=== PATIENT | female | born 1965 | race African-American/Black ===

== ENCOUNTER 2019-09-03 12:32 | Inpatient (IN) ==
[2019-09-03] MEDS ORDERED: FUROSEMIDE 100 MG/10 ML VIAL IV STA (12:42)
[2019-09-03] MEDS ORDERED: DEXTROSE 50% 25 GM/50 ML VIAL IV STA (12:46)
[2019-09-03] MEDS ORDERED: DEXTROSE 50% 25 GM/50 ML SYRINGE IV ONE (12:46)
[2019-09-03 13:05] LABS: Basophils % 0.4 % (0.0-0.8); Eosinophils # 0.1 10*3/uL (0.0-0.87); Hematocrit 26.5 VOL% (35.7-47.0); Immature Granulocytes % 0.7 %; Immature Granulocytes Absolute 0.05 #; Lymphocytes # 1.1 10*3/uL (1.4-4.0); Lymphocytes % 15.2 % (21.3-54.2); Mean Corpuscular HGB Conc 30.2 GM/DL (32-36); Mean Corpuscular Volume 97.1 FL (87-102); Mean Platelet Volume 9.9 FL (9.6-12.0); Monocytes % 8.4 % (1.7-12.7); Neutrophils % 74.3 % (38.7-73.9); Platelet Count 209 T/CUMM (130-400); Red Blood Count 2.73 MC/CUMM (3.8-5.5); Red Cell Distribution Width 14.7 % (9.3-17.3); White Blood Count 7.2 T/CUMM (4-12)
[2019-09-03 13:34] LABS: Alanine Aminotransferase 24 U/L (13-56); Albumin 2.2 G/DL (3.4-5.0); Alkaline Phosphatase 165 U/L (45-117); Aspartate Amino Transferase 14 U/L (0-37); Bilirubin,Total < 0.39 MG/DL (0.2-1.0); Blood Urea Nitrogen 67 MG/DL (7-18); Calcium 6.7 MG/DL (8.5-10.1); Estimated Glom Filtration Rate 11 ML/MIN; Osmolality,Calculated 306.4 MOS/KG (273-304); Total Protein 5.4 G/DL (6.4-8.3)
[2019-09-03 13:38] LABS: Apearance,Urine Slightly Hazy (Clear); Bacteria,Urine Many /HPF (Few); Bilirubin,Urine Negative (Negative); Blood, Urine Negative (Negative); Glucose,Urine (UA) Negative (Negative); Ketones,Urine Negative (Negative); Nitrite,Urine Negative (Negative); Protein,Urine >=500 MG/DL; RBC,Urine 9 /HPF (0-4); Squamous Epithelial Cell,Urine Occasional /HPF (0-10); Urine Color Yellow (Yellow); Urine Specific Gravity 1.015 (1.001-1.035); Urine Urobilinogen < 2.0 EU/DL (0.2-1.0); WBC,Urine 96 /HPF (0-6)
[2019-09-03 13:40] LABS: Glucose 29 MG/DL (74-106)
[2019-09-03] MEDS ORDERED: ONDANSETRON 4 MG/2 ML VIAL IV PRN (15:34)
[2019-09-03] MEDS ORDERED: ACETAMINOPHEN 325 MG TABLET PO PRN (15:34)
[2019-09-03] MEDS ORDERED: GLUCAGON 1 MG VIAL IM PRN (15:34)
[2019-09-03] MEDS ORDERED: ALBUTEROL/IPRATROPIUM 3 ML NEB RESP TX PRN (15:34)
[2019-09-03] MEDS ORDERED: DEXTROSE 50% 25 GM/50 ML VIAL IV PRN (15:34)
[2019-09-03] MEDS ORDERED: cefTRIAXone 1,000 MG in SYRINGE 1 EACH IV SCH (16:00)
[2019-09-03 16:35] LABS: Risk Ratio 1.7; Thyroid Stimulating Hormone 0.824 uIU/ml (0.358-3.74); VLDL CHOLESTEROL 18.2 MG/DL
[2019-09-03] MEDS ORDERED: DEXTROSE 10% 250 ML IV ONE (17:23)
[2019-09-03] MEDS: DEXTROSE 10% 1,000 ML IV SCH (17:45)
[2019-09-03] MEDS ORDERED: MIDAZOLAM 2 MG/2 ML VIAL ONE (18:41)
[2019-09-03] MEDS ORDERED: SUCCINYLCHOLINE 200 MG/10 ML VIAL ONE (18:41)
[2019-09-03] MEDS ORDERED: MIDAZOLAM 2 MG/2 ML VIAL IV ONE (18:44)
[2019-09-03] MEDS ORDERED: SUCCINYLCHOLINE 200 MG/10 ML VIAL IV ONE (18:45)
[2019-09-03] MEDS ORDERED: LABETALOL 20 MG/4 ML SYRINGE IV ONE (18:52)
[2019-09-03] MEDS ORDERED: niCARdipine INJ 25 MG in SODIUM CHLORIDE 0.9% 240 ML IV PRN (18:52)
[2019-09-03 19:52] LABS: ABG Base Excess -6.6 MMOL/L (-2.5-2.5); ABG HCO3 21.1 MMOL/L (20-26); ABG Oxygen Saturation 99.2 % (95-100); ABG PCO2 54.2 MM HG (35-48); ABG PO2 528.4 MM HG (80-95); ABG TCO2 22.8 MMOL/L (23-27); Pt O2 Delivery Device Ventilator
[2019-09-03 19:54] LABS: ABG PH 7.208 (7.35-7.45)
[2019-09-03] MEDS ORDERED: SODIUM BICARBONATE 50 MEQ/50 ML VIAL IV ONE (20:10)
[2019-09-03] MEDS: CLINDAMYCIN INJ 600 MG in PREMIX 1 EACH IV SCH (20:53)
[2019-09-03] MEDS: SIMVASTATIN 40 MG TABLET PO SCH (20:55)
[2019-09-03] MEDS: ENOXAPARIN 30 MG/0.3 ML SYRINGE SUBCUT SCH (21:05)
[2019-09-03] MEDS: PIPERACILLIN/TAZOBACTAM 3,375 MG in SODIUM CHLORIDE 0.9% 100 ML IV SCH (21:10)
[2019-09-03 22:35] LABS: Pt O2 Delivery Device Ventilator
[2019-09-03 22:36] LABS: ABG Base Excess -2.3 MMOL/L (-2.5-2.5); ABG HCO3 20.6 MMOL/L (20-26); ABG Oxygen Saturation 97.2 % (95-100); ABG PCO2 27.6 MM HG (35-48); ABG PH 7.491 (7.35-7.45); ABG PO2 97.6 MM HG (80-95); ABG TCO2 21.5 MMOL/L (23-27)
[2019-09-04 01:27] LABS: Basophils % 0.4 % (0.0-0.8); Eosinophils % 0.5 % (0.00-10.9); Hematocrit 22.4 VOL% (35.7-47.0); Immature Granulocytes % 0.5 %; Immature Granulocytes Absolute 0.03 #; Lymphocytes # 0.6 10*3/uL (1.4-4.0); Lymphocytes % 11.3 % (21.3-54.2); Mean Corpuscular HGB Conc 31.3 GM/DL (32-36); Mean Corpuscular Volume 92.6 FL (87-102); Mean Platelet Volume 9.4 FL (9.6-12.0); Monocytes % 4.1 % (1.7-12.7); Neutrophils % 83.2 % (38.7-73.9); Platelet Count 171 T/CUMM (130-400); Red Blood Count 2.42 MC/CUMM (3.8-5.5); Red Cell Distribution Width 14.6 % (9.3-17.3); White Blood Count 5.6 T/CUMM (4-12)
[2019-09-04 01:42] LABS: Calcium 6.6 MG/DL (8.5-10.1); Osmolality,Calculated 308.8 MOS/KG (273-304)
[2019-09-04] MEDS: CLINDAMYCIN INJ 600 MG in PREMIX 1 EACH IV SCH ×2 (04:40→12:00)
[2019-09-04 04:47] LABS: ABG HCO3 22.8 MMOL/L (20-26); ABG PCO2 27.5 MM HG (35-48); ABG PH 7.487 (7.35-7.45); ABG TCO2 19.6 MMOL/L (23-27); Pt O2 Delivery Device Ventilator
[2019-09-04] MEDS ORDERED: FUROSEMIDE 40 MG/4 ML VIAL IV SCH (09:00)
[2019-09-04] MEDS ORDERED: PANTOPRAZOLE 40 MG TABLET PO SCH (09:00)
[2019-09-04] MEDS: PIPERACILLIN/TAZOBACTAM 3,375 MG in SODIUM CHLORIDE 0.9% 100 ML IV SCH (09:05)
[2019-09-04] MEDS: PANTOPRAZOLE 40 MG VIAL IV SCH (09:05)
[2019-09-04] MEDS: CHLORTHALIDONE 25 MG TABLET PO SCH (09:05)
[2019-09-04] MEDS: DEXTROSE 10% 1,000 ML IV SCH (09:15)
[2019-09-04] MEDS: cefTRIAXone 1,000 MG in SYRINGE 1 EACH IV SCH (13:00)
[2019-09-04] MEDS: AZITHROMYCIN INJ 500 MG in SODIUM CHLORIDE 0.9% 250 ML IV SCH (13:05)
[2019-09-04] MEDS: SODIUM BICARB INJ 50 MEQ in DEXTROSE 5% 1,000 ML IV SCH (14:50)
[2019-09-04] MEDS: ENOXAPARIN 30 MG/0.3 ML SYRINGE SUBCUT SCH (16:05)
[2019-09-04] MEDS: INSULIN REGULAR 100 UNIT/ML SUBCUT SCH (18:20)
[2019-09-04] MEDS: fentaNYL INJ 1,250 MCG in SODIUM CHLORIDE 0.9% 225 ML IV PRN (18:25)
[2019-09-04] MEDS: SIMVASTATIN 40 MG TABLET PO SCH (20:23)
[2019-09-05] MEDS: INSULIN REGULAR 100 UNIT/ML SUBCUT SCH ×5 (00:02→23:30)
[2019-09-05] MEDS: fentaNYL INJ 1,250 MCG in SODIUM CHLORIDE 0.9% 225 ML IV PRN ×4 (00:25→23:04)
[2019-09-05] MEDS: SODIUM BICARB INJ 50 MEQ in DEXTROSE 5% 1,000 ML IV SCH ×3 (01:05→10:00)
[2019-09-05 03:41] LABS: ABG Base Excess -2.5 MMOL/L (-2.5-2.5); ABG HCO3 22.3 MMOL/L (20-26); ABG Oxygen Saturation 99.5 % (95-100); ABG PCO2 34.2 MM HG (35-48); ABG TCO2 20.5 MMOL/L (23-27); Allen Test Positive; Pt O2 Delivery Device Ventilator
[2019-09-05 05:08] LABS: Basophils % 0.2 % (0.0-0.8); Eosinophils % 0.3 % (0.00-10.9); Hematocrit 22.7 VOL% (35.7-47.0); Hemoglobin 6.9 GM/DL (12.0-16.0); Immature Granulocytes % 0.9 %; Immature Granulocytes Absolute 0.05 #; Lymphocytes # 0.8 10*3/uL (1.4-4.0); Lymphocytes % 12.9 % (21.3-54.2); Mean Corpuscular HGB Conc 30.4 GM/DL (32-36); Mean Corpuscular Volume 94.2 FL (87-102); Mean Platelet Volume 9.8 FL (9.6-12.0); Monocytes % 6.2 % (1.7-12.7); NRBC # 0.02 10*3/uL; Neutrophils % 79.5 % (38.7-73.9); Platelet Count 196 T/CUMM (130-400); Red Blood Count 2.41 MC/CUMM (3.8-5.5); Red Cell Distribution Width 14.8 % (9.3-17.3); White Blood Count 5.8 T/CUMM (4-12)
[2019-09-05 05:41] LABS: Osmolality,Calculated 306.1 MOS/KG (273-304)
[2019-09-05 05:43] LABS: Prealbumin 15.3 MG/DL (20-40)
[2019-09-05] MEDS ORDERED: MAGNESIUM SULF RIDER 4 GM in PREMIX 1 EACH IV PRN (06:03)
[2019-09-05 06:07] LABS: Calcium 5.8 MG/DL (8.5-10.1)
[2019-09-05] MEDS: MAGNESIUM SULF RIDER 2 GM in PREMIX 1 EACH IV PRN (06:29)
[2019-09-05] MEDS ORDERED: CALCIUM GLUCONATE 2,000 MG in SODIUM CHLORIDE 0.9% 100 ML IV ONE (07:00)
[2019-09-05] MEDS: PANTOPRAZOLE 40 MG VIAL IV SCH (08:25)
[2019-09-05] MEDS: CHLORTHALIDONE 25 MG TABLET PO SCH (08:25)
[2019-09-05] MEDS ORDERED: FUROSEMIDE 40 MG/4 ML VIAL IV SCH (09:00)
[2019-09-05] MEDS: cefTRIAXone 1,000 MG in SYRINGE 1 EACH IV SCH (11:45)
[2019-09-05] MEDS: AZITHROMYCIN INJ 500 MG in SODIUM CHLORIDE 0.9% 250 ML IV SCH (13:00)
[2019-09-05] MEDS: ENOXAPARIN 30 MG/0.3 ML SYRINGE SUBCUT SCH (16:25)
[2019-09-05] MEDS ORDERED: METOPROLOL TARTRATE 5 MG/5 ML VIAL IV ONE ×2 (17:08→17:10)
[2019-09-05] MEDS ORDERED: FUROSEMIDE 20 MG/2 ML VIAL IV ONE (18:06)
[2019-09-05] MEDS: SIMVASTATIN 40 MG TABLET PO SCH (20:04)
[2019-09-06 03:22] LABS: ABG Base Excess -4.3 MMOL/L (-2.5-2.5); ABG HCO3 20.8 MMOL/L (20-26); ABG Oxygen Saturation 95.4 % (95-100); ABG PH 7.311 (7.35-7.45); ABG PO2 80.6 MM HG (80-95); ABG TCO2 20.4 MMOL/L (23-27); Allen Test Positive; Pt O2 Delivery Device Ventilator
[2019-09-06 03:33] LABS: Basophils % 0.3 % (0.0-0.8); Eosinophils # 0.2 10*3/uL (0.0-0.87); Eosinophils % 1.7 % (0.00-10.9); Hematocrit 25.7 VOL% (35.7-47.0); Hemoglobin 7.6 GM/DL (12.0-16.0); Immature Granulocytes % 2.6 %; Immature Granulocytes Absolute 0.22 #; Lymphocytes # 1.2 10*3/uL (1.4-4.0); Lymphocytes % 13.4 % (21.3-54.2); Mean Corpuscular HGB Conc 29.6 GM/DL (32-36); Mean Corpuscular Volume 96.6 FL (87-102); Mean Platelet Volume 10.1 FL (9.6-12.0); NRBC # 0.02 10*3/uL; Platelet Count 237 T/CUMM (130-400); Red Blood Count 2.66 MC/CUMM (3.8-5.5); White Blood Count 8.6 T/CUMM (4-12)
[2019-09-06 03:51] LABS: Osmolality,Calculated 302.3 MOS/KG (273-304)
[2019-09-06] MEDS: CALCIUM GLUCONATE 2,000 MG in SODIUM CHLORIDE 0.9% 100 ML IV PRN (05:05)
[2019-09-06] MEDS: INSULIN REGULAR 100 UNIT/ML SUBCUT SCH ×3 (05:47→18:35)
[2019-09-06] MEDS ORDERED: niCARdipine INJ 25 MG in SODIUM CHLORIDE 0.9% 240 ML IV STA (07:43)
[2019-09-06] MEDS: fentaNYL INJ 1,250 MCG in SODIUM CHLORIDE 0.9% 225 ML IV PRN ×3 (08:19→22:00)
[2019-09-06] MEDS: CHLORTHALIDONE 25 MG TABLET PO SCH (08:20)
[2019-09-06] MEDS ORDERED: niCARdipine INJ 25 MG in SODIUM CHLORIDE 0.9% 240 ML IV PRN (08:20)
[2019-09-06] MEDS: PANTOPRAZOLE 40 MG VIAL IV SCH (08:21)
[2019-09-06] MEDS: MAGNESIUM SULF RIDER 2 GM in PREMIX 1 EACH IV PRN (09:50)
[2019-09-06] MEDS: cefTRIAXone 1,000 MG in SYRINGE 1 EACH IV SCH (13:33)
[2019-09-06] MEDS: AZITHROMYCIN INJ 500 MG in SODIUM CHLORIDE 0.9% 250 ML IV SCH (13:37)
[2019-09-06] MEDS: FUROSEMIDE 40 MG/4 ML VIAL IV SCH (17:05)
[2019-09-06] MEDS: ENOXAPARIN 30 MG/0.3 ML SYRINGE SUBCUT SCH (17:05)
[2019-09-06] MEDS ORDERED: FUROSEMIDE 40 MG/4 ML VIAL IM ONE (21:00)
[2019-09-06] MEDS: carvediloL 25 MG TABLET PO SCH (21:05)
[2019-09-06] MEDS: cloNIDine 0.1 MG TABLET PO SCH (21:05)
[2019-09-06] MEDS: SIMVASTATIN 40 MG TABLET PO SCH (22:10)
[2019-09-06] MEDS: VERAPAMIL 120 MG TABLET PO SCH (22:10)
[2019-09-06] MEDS ORDERED: FUROSEMIDE 40 MG/4 ML VIAL IV ONE (22:30)
[2019-09-07] MEDS: INSULIN REGULAR 100 UNIT/ML SUBCUT SCH ×5 (00:49→23:10)
[2019-09-07 03:46] LABS: ABG Base Excess -3.9 MMOL/L (-2.5-2.5); ABG HCO3 21.1 MMOL/L (20-26); ABG Oxygen Saturation 98.4 % (95-100); ABG PCO2 33.8 MM HG (35-48); ABG TCO2 19.3 MMOL/L (23-27); Allen Test Positive; Pt O2 Delivery Device Ventilator
[2019-09-07 04:40] LABS: Basophils % 0.4 % (0.0-0.8); Eosinophils # 0.2 10*3/uL (0.0-0.87); Hematocrit 23.6 VOL% (35.7-47.0); Hemoglobin 7.1 GM/DL (12.0-16.0); Immature Granulocytes % 3.7 %; Immature Granulocytes Absolute 0.33 #; Lymphocytes # 1.5 10*3/uL (1.4-4.0); Lymphocytes % 16.5 % (21.3-54.2); Mean Corpuscular HGB Conc 30.1 GM/DL (32-36); Mean Corpuscular Volume 94.4 FL (87-102); Mean Platelet Volume 9.7 FL (9.6-12.0); Monocytes % 8.4 % (1.7-12.7); Platelet Count 209 T/CUMM (130-400); Red Cell Distribution Width 15.1 % (9.3-17.3); White Blood Count 8.9 T/CUMM (4-12)
[2019-09-07] MEDS: fentaNYL INJ 1,250 MCG in SODIUM CHLORIDE 0.9% 225 ML IV PRN (04:46)
[2019-09-07 05:11] LABS: Calcium 6.1 MG/DL (8.5-10.1); Osmolality,Calculated 302.3 MOS/KG (273-304)
[2019-09-07] MEDS: CALCIUM GLUCONATE 2,000 MG in SODIUM CHLORIDE 0.9% 100 ML IV PRN (05:58)
[2019-09-07] MEDS: FUROSEMIDE 40 MG/4 ML VIAL IV SCH ×2 (08:08→16:03)
[2019-09-07] MEDS: PANTOPRAZOLE 40 MG VIAL IV SCH (09:00)
[2019-09-07] MEDS: POTASSIUM CHLORIDE 20 MEQ/15 ML UDCUP PER TUBE PRN ×5 (09:00→23:10)
[2019-09-07] MEDS ORDERED: metOLazone 5 MG TABLET PO SCH (09:00)
[2019-09-07] MEDS: VERAPAMIL 120 MG TABLET PO SCH ×2 (09:01→20:17)
[2019-09-07] MEDS: carvediloL 25 MG TABLET PO SCH ×2 (09:01→20:17)
[2019-09-07] MEDS: SEVELAMER CARBONATE 800 MG TABLET PO SCH ×3 (09:01→17:20)
[2019-09-07] MEDS: POTASSIUM CHLORIDE 10 MEQ TABLET PO SCH (09:01)
[2019-09-07] MEDS: cloNIDine 0.1 MG TABLET PO SCH ×3 (09:05→20:17)
[2019-09-07] MEDS: cefTRIAXone 1,000 MG in SYRINGE 1 EACH IV SCH (12:43)
[2019-09-07] MEDS ORDERED: NITROGLYCERIN 2% OINT 1 INCH/GM PACK TOP SCH (13:16)
[2019-09-07] MEDS: AZITHROMYCIN INJ 500 MG in SODIUM CHLORIDE 0.9% 250 ML IV SCH (13:59)
[2019-09-07] MEDS: ENOXAPARIN 30 MG/0.3 ML SYRINGE SUBCUT SCH (16:03)
[2019-09-07] MEDS: SIMVASTATIN 40 MG TABLET PO SCH (20:17)
[2019-09-08] MEDS: cloNIDine 0.1 MG TABLET PO SCH ×5 (02:10→21:42)
[2019-09-08 04:13] LABS: ABG Base Excess -3.9 MMOL/L (-2.5-2.5); ABG HCO3 20.6 MMOL/L (20-26); ABG Oxygen Saturation 95.9 % (95-100); ABG PCO2 35.3 MM HG (35-48); ABG PH 7.385 (7.35-7.45); ABG PO2 85.4 MM HG (80-95); ABG TCO2 21.7 MMOL/L (23-27); Allen Test Positive; Pt O2 Delivery Device Ventilator
[2019-09-08 04:29] LABS: Basophils % 0.4 % (0.0-0.8); Eosinophils # 0.2 10*3/uL (0.0-0.87); Eosinophils % 1.8 % (0.00-10.9); Hematocrit 25.3 VOL% (35.7-47.0); Hemoglobin 7.6 GM/DL (12.0-16.0); Immature Granulocytes Absolute 0.51 #; Lymphocytes # 1.1 10*3/uL (1.4-4.0); Lymphocytes % 11.2 % (21.3-54.2); Mean Corpuscular Volume 94.8 FL (87-102); Mean Platelet Volume 9.5 FL (9.6-12.0); Monocytes % 7.5 % (1.7-12.7); NRBC # 0.02 10*3/uL; Neutrophils % 74.1 % (38.7-73.9); Platelet Count 221 T/CUMM (130-400); Red Blood Count 2.67 MC/CUMM (3.8-5.5); Red Cell Distribution Width 15.3 % (9.3-17.3); White Blood Count 10.2 T/CUMM (4-12)
[2019-09-08 04:53] LABS: Calcium 6.8 MG/DL (8.5-10.1); Osmolality,Calculated 304.3 MOS/KG (273-304)
[2019-09-08] MEDS: INSULIN REGULAR 100 UNIT/ML SUBCUT SCH ×3 (05:00→18:27)
[2019-09-08 05:15] LABS: Eosinophils 1 % (0-10); Hypochromasia 1+; Lymphocytes 15 % (20-55); Metamyelocytes 2 %; Microcytosis Slight; Myelocytes 1 %; Segmented Neutrophils 74 % (50-85); Total Cells Counted 100
[2019-09-08 05:16] LABS: Platelet Estimate Normal
[2019-09-08] MEDS: FUROSEMIDE 40 MG/4 ML VIAL IV SCH (08:40)
[2019-09-08] MEDS: PANTOPRAZOLE 40 MG VIAL IV SCH (08:40)
[2019-09-08] MEDS: CALCIUM CARBONATE CHEW 500 MG TABLET PO SCH ×3 (09:07→21:42)
[2019-09-08] MEDS: SEVELAMER CARBONATE 800 MG TABLET PO SCH ×3 (09:07→17:18)
[2019-09-08] MEDS: VERAPAMIL 120 MG TABLET PO SCH ×2 (09:08→21:42)
[2019-09-08] MEDS: POTASSIUM CHLORIDE 10 MEQ TABLET PO SCH (09:08)
[2019-09-08] MEDS: carvediloL 25 MG TABLET PO SCH ×2 (09:09→21:42)
[2019-09-08] MEDS: CALCIUM GLUCONATE 2,000 MG in SODIUM CHLORIDE 0.9% 100 ML IV PRN (09:09)
[2019-09-08] MEDS: DEXMEDETOMIDINE 200 MCG in SODIUM CHLORIDE 0.9% 48 ML IV PRN ×2 (11:26→20:02)
[2019-09-08] MEDS: cefTRIAXone 1,000 MG in SYRINGE 1 EACH IV SCH (12:47)
[2019-09-08] MEDS: AZITHROMYCIN INJ 500 MG in SODIUM CHLORIDE 0.9% 250 ML IV SCH (13:05)
[2019-09-08] MEDS: ENOXAPARIN 30 MG/0.3 ML SYRINGE SUBCUT SCH (16:00)
[2019-09-08] MEDS: SIMVASTATIN 40 MG TABLET PO SCH (21:42)
[2019-09-09] MEDS: INSULIN REGULAR 100 UNIT/ML SUBCUT SCH ×4 (01:18→17:35)
[2019-09-09] MEDS: CALCIUM CARBONATE CHEW 500 MG TABLET PO SCH ×4 (03:12→21:13)
[2019-09-09] MEDS: cloNIDine 0.1 MG TABLET PO SCH ×4 (03:12→21:15)
[2019-09-09 03:30] LABS: ABG Base Excess -2.3 MMOL/L (-2.5-2.5); ABG HCO3 22.5 MMOL/L (20-26); ABG Oxygen Saturation 98.8 % (95-100); ABG PCO2 34.1 MM HG (35-48); ABG PH 7.413 (7.35-7.45); Allen Test Positive; Pt O2 Delivery Device Ventilator
[2019-09-09] MEDS: DEXMEDETOMIDINE 200 MCG in SODIUM CHLORIDE 0.9% 48 ML IV PRN ×3 (03:38→19:29)
[2019-09-09 05:01] LABS: Basophils % 0.2 % (0.0-0.8); Eosinophils # 0.2 10*3/uL (0.0-0.87); Eosinophils % 1.7 % (0.00-10.9); Hematocrit 23.6 VOL% (35.7-47.0); Hemoglobin 7.2 GM/DL (12.0-16.0); Immature Granulocytes % 3.8 %; Immature Granulocytes Absolute 0.38 #; Lymphocytes # 0.9 10*3/uL (1.4-4.0); Lymphocytes % 9.1 % (21.3-54.2); Mean Corpuscular HGB Conc 30.5 GM/DL (32-36); Mean Platelet Volume 10.3 FL (9.6-12.0); Monocytes % 6.4 % (1.7-12.7); Neutrophils % 78.8 % (38.7-73.9); Platelet Count 222 T/CUMM (130-400); Red Blood Count 2.51 MC/CUMM (3.8-5.5); Red Cell Distribution Width 15.5 % (9.3-17.3)
[2019-09-09 05:13] LABS: Calcium 6.9 MG/DL (8.5-10.1); Osmolality,Calculated 301.5 MOS/KG (273-304)
[2019-09-09] MEDS: POTASSIUM CHLORIDE 20 MEQ/15 ML UDCUP PER TUBE PRN (06:16)
[2019-09-09] MEDS ORDERED: CALCIUM GLUCONATE 2,000 MG in SODIUM CHLORIDE 0.9% 100 ML IV PRN (06:30)
[2019-09-09] MEDS: methylPREDNISolone SOD SUC 40 MG/1 ML VIAL IV SCH ×2 (09:30→15:55)
[2019-09-09] MEDS: PANTOPRAZOLE 40 MG VIAL IV SCH (09:32)
[2019-09-09] MEDS: VERAPAMIL 120 MG TABLET PO SCH ×2 (09:40→21:14)
[2019-09-09] MEDS: carvediloL 25 MG TABLET PO SCH ×2 (09:40→21:13)
[2019-09-09] MEDS: FUROSEMIDE 40 MG/4 ML VIAL IV SCH (09:40)
[2019-09-09] MEDS: SEVELAMER CARBONATE 800 MG TABLET PO SCH ×3 (09:40→17:35)
[2019-09-09] MEDS: POTASSIUM CHLORIDE 10 MEQ TABLET PO SCH (09:40)
[2019-09-09] MEDS: AZITHROMYCIN INJ 500 MG in SODIUM CHLORIDE 0.9% 250 ML IV SCH (12:30)
[2019-09-09] MEDS: ENOXAPARIN 30 MG/0.3 ML SYRINGE SUBCUT SCH (15:55)
[2019-09-09] MEDS: cefTRIAXone 1,000 MG in SYRINGE 1 EACH IV SCH (15:55)
[2019-09-09] MEDS: SIMVASTATIN 40 MG TABLET PO SCH (21:14)
[2019-09-10] MEDS: INSULIN REGULAR 100 UNIT/ML SUBCUT SCH ×5 (01:42→21:55)
[2019-09-10] MEDS: methylPREDNISolone SOD SUC 40 MG/1 ML VIAL IV SCH ×2 (01:42→09:14)
[2019-09-10 04:05] LABS: ABG Base Excess -1.6 MMOL/L (-2.5-2.5); ABG HCO3 23.1 MMOL/L (20-26); ABG Oxygen Saturation 98.2 % (95-100); ABG PCO2 34.7 MM HG (35-48); ABG PO2 98.4 MM HG (80-95); Allen Test Positive; Pt O2 Delivery Device Ventilator
[2019-09-10] MEDS: DEXMEDETOMIDINE 200 MCG in SODIUM CHLORIDE 0.9% 48 ML IV PRN (04:10)
[2019-09-10] MEDS: CALCIUM CARBONATE CHEW 500 MG TABLET PO SCH ×4 (04:12→22:04)
[2019-09-10] MEDS: cloNIDine 0.1 MG TABLET PO SCH ×4 (04:12→22:05)
[2019-09-10 04:45] LABS: Basophils % 0.1 % (0.0-0.8); Hematocrit 25.8 VOL% (35.7-47.0); Hemoglobin 7.9 GM/DL (12.0-16.0); Immature Granulocytes % 4.2 %; Immature Granulocytes Absolute 0.46 #; Lymphocytes # 0.5 10*3/uL (1.4-4.0); Lymphocytes % 4.7 % (21.3-54.2); Mean Corpuscular HGB Conc 30.6 GM/DL (32-36); Mean Corpuscular Volume 92.1 FL (87-102); Mean Platelet Volume 10.1 FL (9.6-12.0); Monocytes % 1.5 % (1.7-12.7); Neutrophils % 89.5 % (38.7-73.9); Platelet Count 261 T/CUMM (130-400); Red Cell Distribution Width 15.3 % (9.3-17.3); White Blood Count 10.9 T/CUMM (4-12)
[2019-09-10 05:21] LABS: Band Neutrophils 1 % (0-10); Hypochromasia 1+; Lymphocytes 3 % (20-55); Metamyelocytes 1 %; Microcytosis Slight; Polychromasia Slight; Segmented Neutrophils 95 % (50-85); Total Cells Counted 100
[2019-09-10 05:22] LABS: Calcium 7.4 MG/DL (8.5-10.1); Osmolality,Calculated 304.4 MOS/KG (273-304); Platelet Estimate Normal
[2019-09-10 05:23] LABS: Prealbumin 16.4 MG/DL (20-40)
[2019-09-10] MEDS ORDERED: hydrALAZINE 20 MG/1 ML VIAL IV PRN (08:56)
[2019-09-10] MEDS: VERAPAMIL 120 MG TABLET PO SCH ×2 (09:09→22:04)
[2019-09-10] MEDS: SEVELAMER CARBONATE 800 MG TABLET PO SCH ×3 (09:09→17:50)
[2019-09-10] MEDS: carvediloL 25 MG TABLET PO SCH ×2 (09:09→22:04)
[2019-09-10] MEDS: POTASSIUM CHLORIDE 10 MEQ TABLET PO SCH (09:10)
[2019-09-10] MEDS: FUROSEMIDE 40 MG/4 ML VIAL IV SCH (09:12)
[2019-09-10] MEDS: PANTOPRAZOLE 40 MG VIAL IV SCH (09:15)
[2019-09-10] MEDS: predniSONE 20 MG TABLET PO SCH (11:10)
[2019-09-10] MEDS: cefTRIAXone 1,000 MG in SYRINGE 1 EACH IV SCH (14:15)
[2019-09-10] MEDS: ENOXAPARIN 30 MG/0.3 ML SYRINGE SUBCUT SCH (16:15)
[2019-09-10] MEDS: SIMVASTATIN 40 MG TABLET PO SCH (22:04)
[2019-09-11] MEDS: cloNIDine 0.1 MG TABLET PO SCH ×4 (03:25→20:05)
[2019-09-11] MEDS: CALCIUM CARBONATE CHEW 500 MG TABLET PO SCH ×4 (03:25→20:05)
[2019-09-11 05:45] LABS: Basophils % 0.1 % (0.0-0.8); Eosinophils % 0.1 % (0.00-10.9); Hematocrit 23.9 VOL% (35.7-47.0); Hemoglobin 7.3 GM/DL (12.0-16.0); Immature Granulocytes Absolute 0.25 #; Lymphocytes # 0.7 10*3/uL (1.4-4.0); Lymphocytes % 5.4 % (21.3-54.2); Mean Corpuscular HGB Conc 30.5 GM/DL (32-36); Mean Corpuscular Volume 94.1 FL (87-102); Mean Platelet Volume 9.9 FL (9.6-12.0); Monocytes % 7.7 % (1.7-12.7); Neutrophils % 84.7 % (38.7-73.9); Platelet Count 314 T/CUMM (130-400); Red Blood Count 2.54 MC/CUMM (3.8-5.5); Red Cell Distribution Width 15.4 % (9.3-17.3); White Blood Count 12.2 T/CUMM (4-12)
[2019-09-11 06:21] LABS: Calcium 7.5 MG/DL (8.5-10.1); Osmolality,Calculated 298.7 MOS/KG (273-304)
[2019-09-11] MEDS: predniSONE 20 MG TABLET PO SCH (08:05)
[2019-09-11] MEDS: PANTOPRAZOLE 40 MG VIAL IV SCH (08:05)
[2019-09-11] MEDS: POTASSIUM CHLORIDE 10 MEQ TABLET PO SCH (08:05)
[2019-09-11] MEDS: SEVELAMER CARBONATE 800 MG TABLET PO SCH ×3 (08:06→17:27)
[2019-09-11] MEDS: FUROSEMIDE 40 MG/4 ML VIAL IV SCH (08:06)
[2019-09-11] MEDS: carvediloL 25 MG TABLET PO SCH ×2 (08:06→20:05)
[2019-09-11] MEDS: VERAPAMIL 120 MG TABLET PO SCH ×2 (08:06→20:05)
[2019-09-11] MEDS: INSULIN REGULAR 100 UNIT/ML SUBCUT SCH ×4 (08:58→21:21)
[2019-09-11] MEDS: ENOXAPARIN 30 MG/0.3 ML SYRINGE SUBCUT SCH (17:26)
[2019-09-11] MEDS: SIMVASTATIN 40 MG TABLET PO SCH (20:05)
[2019-09-12] MEDS: CALCIUM CARBONATE CHEW 500 MG TABLET PO SCH ×4 (03:42→23:15)
[2019-09-12] MEDS: cloNIDine 0.1 MG TABLET PO SCH ×4 (03:42→23:16)
[2019-09-12 06:40] LABS: Basophils % 0.1 % (0.0-0.8); Eosinophils % 0.3 % (0.00-10.9); Hematocrit 23.5 VOL% (35.7-47.0); Immature Granulocytes % 0.8 %; Immature Granulocytes Absolute 0.09 #; Lymphocytes % 8.5 % (21.3-54.2); Mean Corpuscular HGB Conc 29.8 GM/DL (32-36); Mean Platelet Volume 9.3 FL (9.6-12.0); Monocytes % 10.1 % (1.7-12.7); Neutrophils % 80.2 % (38.7-73.9); Platelet Count 265 T/CUMM (130-400); Red Cell Distribution Width 15.3 % (9.3-17.3); White Blood Count 11.4 T/CUMM (4-12)
[2019-09-12 06:57] LABS: Calcium 7.2 MG/DL (8.5-10.1); Osmolality,Calculated 308.8 MOS/KG (273-304)
[2019-09-12] MEDS: INSULIN REGULAR 100 UNIT/ML SUBCUT SCH ×4 (08:27→23:15)
[2019-09-12] MEDS: carvediloL 25 MG TABLET PO SCH ×2 (09:28→23:16)
[2019-09-12] MEDS: SEVELAMER CARBONATE 800 MG TABLET PO SCH ×3 (09:29→17:03)
[2019-09-12] MEDS: POTASSIUM CHLORIDE 10 MEQ TABLET PO SCH (09:29)
[2019-09-12] MEDS: VERAPAMIL 120 MG TABLET PO SCH ×2 (09:29→23:16)
[2019-09-12] MEDS: predniSONE 20 MG TABLET PO SCH (09:29)
[2019-09-12] MEDS: PANTOPRAZOLE 40 MG VIAL IV SCH (09:53)
[2019-09-12] MEDS: FUROSEMIDE 40 MG/4 ML VIAL IV SCH (09:53)
[2019-09-12] MEDS: ENOXAPARIN 30 MG/0.3 ML SYRINGE SUBCUT SCH (15:44)
[2019-09-12] MEDS: SIMVASTATIN 40 MG TABLET PO SCH (23:16)
[2019-09-13] MEDS: CALCIUM CARBONATE CHEW 500 MG TABLET PO SCH ×4 (04:59→20:49)
[2019-09-13] MEDS: cloNIDine 0.1 MG TABLET PO SCH ×4 (04:59→20:50)
[2019-09-13 06:27] LABS: Basophils % 0.1 % (0.0-0.8); Eosinophils # 0.1 10*3/uL (0.0-0.87); Eosinophils % 0.5 % (0.00-10.9); Hemoglobin 7.7 GM/DL (12.0-16.0); Immature Granulocytes % 0.6 %; Immature Granulocytes Absolute 0.07 #; Lymphocytes % 8.7 % (21.3-54.2); Mean Corpuscular HGB Conc 30.8 GM/DL (32-36); Mean Corpuscular Volume 91.2 FL (87-102); Mean Platelet Volume 9.2 FL (9.6-12.0); Monocytes % 10.5 % (1.7-12.7); Neutrophils % 79.6 % (38.7-73.9); Platelet Count 249 T/CUMM (130-400); Red Blood Count 2.74 MC/CUMM (3.8-5.5); Red Cell Distribution Width 17.4 % (9.3-17.3); White Blood Count 11.7 T/CUMM (4-12)
[2019-09-13] MEDS: INSULIN REGULAR 100 UNIT/ML SUBCUT SCH ×4 (08:03→20:49)
[2019-09-13] MEDS: VERAPAMIL 120 MG TABLET PO SCH ×2 (08:53→20:50)
[2019-09-13] MEDS: carvediloL 25 MG TABLET PO SCH ×2 (08:53→20:50)
[2019-09-13] MEDS: SEVELAMER CARBONATE 800 MG TABLET PO SCH ×3 (08:53→17:13)
[2019-09-13] MEDS: predniSONE 20 MG TABLET PO SCH (08:54)
[2019-09-13] MEDS: PANTOPRAZOLE 40 MG VIAL IV SCH (08:54)
[2019-09-13] MEDS: POTASSIUM CHLORIDE 10 MEQ TABLET PO SCH (08:54)
[2019-09-13] MEDS: FUROSEMIDE 40 MG/4 ML VIAL IV SCH (08:58)
[2019-09-13] MEDS: ENOXAPARIN 30 MG/0.3 ML SYRINGE SUBCUT SCH (17:13)
[2019-09-13] MEDS: SIMVASTATIN 40 MG TABLET PO SCH (20:50)
[2019-09-14] MEDS: CALCIUM CARBONATE CHEW 500 MG TABLET PO SCH ×4 (03:30→22:10)
[2019-09-14] MEDS: cloNIDine 0.1 MG TABLET PO SCH ×4 (03:30→22:14)
[2019-09-14 05:31] LABS: Calcium 7.2 MG/DL (8.5-10.1); Osmolality,Calculated 310.8 MOS/KG (273-304)
[2019-09-14] MEDS: SEVELAMER CARBONATE 800 MG TABLET PO SCH ×3 (09:50→18:22)
[2019-09-14] MEDS: carvediloL 25 MG TABLET PO SCH ×2 (09:51→22:10)
[2019-09-14] MEDS: predniSONE 20 MG TABLET PO SCH (09:51)
[2019-09-14] MEDS: VERAPAMIL 120 MG TABLET PO SCH ×2 (09:51→22:11)
[2019-09-14] MEDS: POTASSIUM CHLORIDE 10 MEQ TABLET PO SCH (09:51)
[2019-09-14] MEDS: PANTOPRAZOLE 40 MG VIAL IV SCH (09:51)
[2019-09-14] MEDS: FUROSEMIDE 40 MG/4 ML VIAL IV SCH (09:54)
[2019-09-14] MEDS: INSULIN REGULAR 100 UNIT/ML SUBCUT SCH ×4 (10:00→23:10)
[2019-09-14] MEDS: ENOXAPARIN 30 MG/0.3 ML SYRINGE SUBCUT SCH (15:21)
[2019-09-14] MEDS: SIMVASTATIN 40 MG TABLET PO SCH (22:14)
[2019-09-15] MEDS: CALCIUM CARBONATE CHEW 500 MG TABLET PO SCH ×4 (03:56→22:20)
[2019-09-15] MEDS: cloNIDine 0.1 MG TABLET PO SCH ×4 (03:56→22:24)
[2019-09-15] MEDS: INSULIN REGULAR 100 UNIT/ML SUBCUT SCH ×4 (08:22→22:21)
[2019-09-15] MEDS: SEVELAMER CARBONATE 800 MG TABLET PO SCH ×3 (09:06→17:57)
[2019-09-15] MEDS: DOCUSATE SODIUM 100 MG CAPSULE PO PRN (09:06)
[2019-09-15] MEDS: FUROSEMIDE 40 MG/4 ML VIAL IV SCH (09:06)
[2019-09-15] MEDS: POTASSIUM CHLORIDE 10 MEQ TABLET PO SCH (09:07)
[2019-09-15] MEDS: carvediloL 25 MG TABLET PO SCH ×2 (09:07→22:20)
[2019-09-15] MEDS: PANTOPRAZOLE 40 MG VIAL IV SCH (09:08)
[2019-09-15] MEDS: VERAPAMIL 120 MG TABLET PO SCH ×2 (09:14→22:20)
[2019-09-15] MEDS: predniSONE 20 MG TABLET PO SCH (09:14)
[2019-09-15] MEDS: ENOXAPARIN 30 MG/0.3 ML SYRINGE SUBCUT SCH (17:57)
[2019-09-15] MEDS: SIMVASTATIN 40 MG TABLET PO SCH (22:20)
[2019-09-16] MEDS: CALCIUM CARBONATE CHEW 500 MG TABLET PO SCH ×4 (04:31→22:17)
[2019-09-16] MEDS: cloNIDine 0.1 MG TABLET PO SCH ×4 (04:31→22:16)
[2019-09-16 05:22] LABS: Basophils % 0.2 % (0.0-0.8); Eosinophils # 0.1 10*3/uL (0.0-0.87); Hematocrit 25.4 VOL% (35.7-47.0); Hemoglobin 7.6 GM/DL (12.0-16.0); Immature Granulocytes % 0.6 %; Immature Granulocytes Absolute 0.05 #; Lymphocytes % 10.5 % (21.3-54.2); Mean Corpuscular HGB Conc 29.9 GM/DL (32-36); Mean Corpuscular Volume 92.7 FL (87-102); Mean Platelet Volume 9.4 FL (9.6-12.0); Monocytes % 5.6 % (1.7-12.7); Neutrophils % 82.1 % (38.7-73.9); Platelet Count 256 T/CUMM (130-400); Red Blood Count 2.74 MC/CUMM (3.8-5.5); Red Cell Distribution Width 16.6 % (9.3-17.3)
[2019-09-16 05:47] LABS: Calcium 7.5 MG/DL (8.5-10.1); Osmolality,Calculated 301.3 MOS/KG (273-304)
[2019-09-16] MEDS ORDERED: predniSONE 10 MG TABLET ONE (08:31)
[2019-09-16] MEDS: INSULIN REGULAR 100 UNIT/ML SUBCUT SCH ×4 (09:30→22:27)
[2019-09-16] MEDS: FUROSEMIDE 40 MG TABLET PO SCH (09:35)
[2019-09-16] MEDS: PANTOPRAZOLE 40 MG TABLET PO SCH (09:35)
[2019-09-16] MEDS: SEVELAMER CARBONATE 800 MG TABLET PO SCH ×3 (09:35→17:14)
[2019-09-16] MEDS: carvediloL 25 MG TABLET PO SCH ×2 (09:35→22:15)
[2019-09-16] MEDS: POTASSIUM CHLORIDE 10 MEQ TABLET PO SCH (09:35)
[2019-09-16] MEDS: VERAPAMIL 120 MG TABLET PO SCH ×2 (09:36→22:16)
[2019-09-16] MEDS: predniSONE 20 MG TABLET PO SCH (09:37)
[2019-09-16] MEDS: predniSONE 10 MG TABLET PO SCH (14:09)
[2019-09-16] MEDS ORDERED: TUBERCULIN SKIN TEST 0.1 ML SYRINGE INTRADERM ONE (16:30)
[2019-09-16] MEDS: ENOXAPARIN 30 MG/0.3 ML SYRINGE SUBCUT SCH (17:14)
[2019-09-16] MEDS: DOCUSATE SODIUM 100 MG CAPSULE PO PRN (22:16)
[2019-09-16] MEDS: SIMVASTATIN 40 MG TABLET PO SCH (22:16)
[2019-09-17] MEDS: cloNIDine 0.1 MG TABLET PO SCH ×3 (04:19→14:00)
[2019-09-17] MEDS: CALCIUM CARBONATE CHEW 500 MG TABLET PO SCH ×4 (04:19→21:46)
[2019-09-17 05:37] LABS: Basophils % 0.1 % (0.0-0.8); Eosinophils % 0.4 % (0.00-10.9); Hematocrit 26.9 VOL% (35.7-47.0); Hemoglobin 7.8 GM/DL (12.0-16.0); Immature Granulocytes % 0.5 %; Immature Granulocytes Absolute 0.04 #; Lymphocytes # 0.8 10*3/uL (1.4-4.0); Lymphocytes % 10.3 % (21.3-54.2); Mean Corpuscular Volume 95.4 FL (87-102); Mean Platelet Volume 9.8 FL (9.6-12.0); Monocytes % 6.1 % (1.7-12.7); Neutrophils % 82.6 % (38.7-73.9); Platelet Count 283 T/CUMM (130-400); Red Blood Count 2.82 MC/CUMM (3.8-5.5); White Blood Count 8.1 T/CUMM (4-12)
[2019-09-17 06:02] LABS: Calcium 7.3 MG/DL (8.5-10.1); Osmolality,Calculated 306.8 MOS/KG (273-304)
[2019-09-17] MEDS: VERAPAMIL 120 MG TABLET PO SCH ×2 (08:02→21:47)
[2019-09-17] MEDS: SEVELAMER CARBONATE 800 MG TABLET PO SCH ×3 (08:02→16:31)
[2019-09-17] MEDS: carvediloL 25 MG TABLET PO SCH ×2 (08:02→21:46)
[2019-09-17] MEDS: PANTOPRAZOLE 40 MG TABLET PO SCH (08:02)
[2019-09-17] MEDS: FUROSEMIDE 40 MG TABLET PO SCH (08:02)
[2019-09-17] MEDS: predniSONE 10 MG TABLET PO SCH (08:03)
[2019-09-17] MEDS: POTASSIUM CHLORIDE 10 MEQ TABLET PO SCH (08:04)
[2019-09-17] MEDS: INSULIN REGULAR 100 UNIT/ML SUBCUT SCH ×4 (09:21→23:44)
[2019-09-17] MEDS ORDERED: cloNIDine 0.1 MG TABLET PO PRN (16:11)
[2019-09-17] MEDS: ENOXAPARIN 30 MG/0.3 ML SYRINGE SUBCUT SCH (16:30)
[2019-09-17] MEDS: SIMVASTATIN 40 MG TABLET PO SCH (21:47)
[2019-09-18] MEDS: CALCIUM CARBONATE CHEW 500 MG TABLET PO SCH ×2 (03:51→09:04)
[2019-09-18] MEDS: SEVELAMER CARBONATE 800 MG TABLET PO SCH (09:04)
[2019-09-18] MEDS: FUROSEMIDE 40 MG TABLET PO SCH (09:04)
[2019-09-18] MEDS: carvediloL 25 MG TABLET PO SCH (09:05)
[2019-09-18] MEDS: PANTOPRAZOLE 40 MG TABLET PO SCH (09:06)
[2019-09-18] MEDS: VERAPAMIL 120 MG TABLET PO SCH (09:06)
[2019-09-18] MEDS: predniSONE 10 MG TABLET PO SCH (09:06)
[2019-09-18] MEDS: POTASSIUM CHLORIDE 10 MEQ TABLET PO SCH (09:08)
[2019-09-18] MEDS: INSULIN REGULAR 100 UNIT/ML SUBCUT SCH (09:08)
[2019-09-18 10:12] VITALS: BP 124/62
== END 2019-09-18 11:10 | DRG 917 ==
LOC: N.ED 12:32 → N.EDINP 15:05 → SUATTDRO 15:05 → N.EDINP 17:00 → N.2E 17:22 → N.ICU 18:48 → N.5E 09-11 12:21
PROVIDERS: ADMIT Hospitalist; ATTEND Internal Medicine